=== PATIENT | female | born 1985 | race Caucasian/White ===

== ENCOUNTER 2016-10-28 12:26 | Emergency (ER) | payer OTHER ==
[~2016-10-28] VITALS: Ht 149.9 cm; Wt 51.3 kg
[~2016-10-28 12:26] MED LIST: TYLENOL325 M1 PO
[2016-10-28 12:39] VITALS: BP 100/71
--- NOTE | 2016-10-28 12:51 | NUR ---
PATIENT PRESENTS TO ED WITH suprapubic pain radiating lower abdomen, dysuria . PT STATES pelvic pain x1 wk ] . DENIES N/V/D; SKIN IS PINK/WARM/DRY; AAOX4 WITH EVEN AND STEADY GAIT; LUNGS CLEAR BL; HR EVEN AND REGULAR; PT DENIES ANY FEVER, CP, SOB, OR COUGH AT THIS TIME; PATIENT STATES PAIN OF 7/10 AT THIS TIME; VSS; PATIENT POSITIONED FOR COMFORT; HOB ELEVATED; BEDRAILS UP X2; BED DOWN. ER MD MADE AWARE OF PT STATUS.
--- NOTE | 2016-10-28 12:51 | NUR ---
Patient ambulated to bed 3. RN evaluating patient at bedside.
--- NOTE | 2016-10-28 13:20 | NUR ---
CHANGED INTO GOWN AND PREPARED FOR PELVIC EXAM
[2016-10-28] MEDS ORDERED: KETOROLAC 30 MG/ML VIAL IVP ONE (13:35)
--- NOTE | 2016-10-28 13:57 | NUR ---
medicated for pelvic pain with toradol---continues to wait for all labs to be resulted, and possible pelvic exam. will continue to observe for pain control. pt remains on her cell phone. x2 sr up guerney low and locked position
--- NOTE | 2016-10-28 14:43 | NUR ---
Patient discharged with v/s stable. Written and verbal after care instructions given and explained. Patient alert, oriented and verbalized understanding of instructions. Ambulatory with steady gait. All questions addressed prior to discharge. ID band removed. Patient advised to follow up with PMD. Rx of tylenol w codeine/zofran given. Patient educated on indication of medication including possible reaction and side effects. Opportunity to ask questions provided and answered.
[2016-10-28 14:44] VITALS: BP 111/78
== END 2016-10-28 14:43 | disposition home or self-care (01) ==
LOC: MED 12:26
DX: R10.30 Lower abdominal pain, unspecified (principal); R11.0 Nausea; R68.83 Chills (without fever)
CPT/HCPCS: 36415; 80053; 81001; 81025; 82150; 83690; 85025; 87086; 96374; 99284; J1885

== ENCOUNTER 2017-01-04 08:47 | Emergency (ER) | payer OTHER ==
[~2017-01-04] VITALS: Ht 149.9 cm; Wt 52.2 kg
[~2017-01-04 08:47] MED LIST changes: +ACET-2619 PO; -TYLENOL325 M1 PO
[2017-01-04 09:11] VITALS: BP 95/61
[2017-01-04 09:29] LABS: BASOPHILS # (AUTO) 0.2 K/uL (0.00-0.22); BASOPHILS % (AUTO) 3.7 % (0.0-2.0); EOSINOPHILS # (AUTO) 0.3 K/uL (0-0.4); EOSINOPHILS % (AUTO) 6.3 % (0.0-4.0); HEMATOCRIT 38.7 % (36-48); LYMPHOCYTES # (AUTO) 1.3 K/uL (2.5-16.5); LYMPHOCYTES % (AUTO) 24.3 % (20.5-51.1); MEAN CORPUSCULAR HEMOGLOBIN 29 pg (27-31); MEAN CORPUSCULAR HGB CONC 34 g/dL (33-37); MEAN CORPUSCULAR VOLUME 86 fL (80-94); MONOCYTES # (AUTO) 0.3 K/uL (0.8-1.0); MONOCYTES % (AUTO) 5.4 % (1.7-9.3); NEUTROPHILS # (AUTO) 3.4 K/uL (1.8-7.7); NEUTROPHILS % (AUTO) 60.3 % (42.2-75.2); PLATELET COUNT (AUTO) 173 K/uL (140-450); RED BLOOD CELL COUNT(AUTO) 4.51 MIL/uL (4.20-5.40); RED CELL DISTRIBUTION WIDTH 11.6 % (11.6-13.7); WHITE BLOOD COUNT (AUTO) 5.5 K/uL (4.8-10.8)
[2017-01-04 09:46] LABS: ALBUMIN 3.9 g/dL (3.4-5.0); ANION GAP 7.4 (8-16); CALCIUM 8.6 mg/dL (8.5-10.1); CARBON DIOXIDE 30.4 mmol/L (21-32); CREATININE 0.6 mg/dL (0.6-1.3); POTASSIUM 3.8 mmol/L (3.5-5.1); TOTAL BILIRUBIN 0.5 mg/dL (0.0-1.0)
--- NOTE | 2017-01-04 10:06 | NUR ---
PT CAME TO ER DUE TO MID EPIGASTRIC PAIN X 2WKS, N/DIARRHEA YESTERDAY AT 3 AM.DENIES ANY MEDICAL HX;DENIES CP/SOB/FEVER AT THIS TIME;STEADY GAIT;UNLABORED BREATHING W/ SYMMETRICAL CHEST EXPANSION;AAOX4;NO ACUTE DISTRESS NOTED;NEEDS ATTENDED;SAFETY MEASURES DONE;
--- NOTE | 2017-01-04 10:22 | NUR ---
DR ECHAVARRIA AT BEDSIDE
--- NOTE | 2017-01-04 10:48 | NUR ---
Patient discharged with v/s stable. Written and verbal after care instructions given and explained. Patient alert, oriented and verbalized understanding of instructions. Ambulatory with steady gait. All questions addressed prior to discharge. ID band removed. Patient advised to follow up with PMD. Rx of PRILOSEC given. Patient educated on indication of medication including possible reaction and side effects. Opportunity to ask questions provided and answered.
[2017-01-04 10:49] VITALS: BP 110/64
== END 2017-01-04 10:48 | disposition home or self-care (01) ==
LOC: MED 08:49
DX: K21.9 Gastro-esophageal reflux disease without esophagitis (principal)
CPT/HCPCS: 36415; 80053; 83690; 85025; 99284

== ENCOUNTER 2018-10-22 10:42 | Emergency (ER) | payer OTHER ==
[~2018-10-22] VITALS: Ht 149.9 cm; Wt 51.3 kg
[2018-10-22 10:46] VITALS: BP 116/64
--- NOTE | 2018-10-22 11:14 | NUR ---
PT AMBULATED TO ER BED 04
--- NOTE | 2018-10-22 11:20 | NUR ---
PT. BIB SELF WITH C/O RIGHT ARM PAIN THAT RADIATES TO R BREAST , NO INJURY/TRAUMA, + ROM, + CMS , > 3 CAP REFILL . SENSATION INTACT. RR EVEN AND UNLABORED. PT. STATES THE SIDE OF MY R BREAST HURTS WELL. DENIES EVER HAVING A BREAST CHECK OR DOING A BREAST SELF EXAM. ER MD MADE AWARE. SAFETY PRECAUTIONS IMPLEMENTED. WILL CONTINUE TO MONITOR. SON AT BEDSIDE.
--- NOTE | 2018-10-22 12:25 | NUR ---
PT. RESTING COMFORTABLY IN BED, RR EVEN AND UNLABORED. VSS. WILL CONTINUE TO MONITOR.
--- NOTE | 2018-10-22 12:38 | NUR ---
WRIST BRACE PROVIDED , CAP REFILL LESS THAN 3 SEC. PULSE PRESENT 2+. SLING PROVIDED WELL.
[2018-10-22 12:39] VITALS: BP 120/68
--- NOTE | 2018-10-22 12:39 | NUR ---
Patient discharged with v/s stable. Written and verbal after care instructions given and explained. Patient alert, oriented and verbalized understanding of instructions. Ambulatory with steady gait. All questions addressed prior to discharge. ID band removed. Patient advised to follow up with PMD. Rx of NAPROSYN 375MG given. Patient educated on indication of medication including possible reaction and side effects. Opportunity to ask questions provided and answered.
== END 2018-10-22 11:40 | disposition home or self-care (01) ==
LOC: MED 10:42
DX: G56.01 Carpal tunnel syndrome, right upper limb (principal); Z79.1 Long term (current) use of non-steroidal anti-inflammatories (NSAID)
CPT/HCPCS: 99283